=== PATIENT | female | born 1985 | race Caucasian/White ===

== ENCOUNTER → 2023-01-07 09:40 | Outpatient (CLI) | payer BC, SELFPAY ==
--- NOTE | ~2023-01-07 | MR_ITS ---
EXAMINATION: MR pelvis wo con DATE: 01/07/2023 10:38 INDICATION: Posterior left hip pain TECHNIQUE: Magnetic resonance imaging (MRI) of the pelvis was performed without intravenous contrast. Sequences included axial T1-weighted FSE, axial T2-weighted FS FSE, coronal T1-weighted FSE, coronal T2-weighted FS FSE, sagittal T1-weighted FSE and sagittal T2-weighted FS FSE. COMPARISON: None. FINDINGS: Minimal lower lumbar levocurvature. Normal alignment is otherwise normal. There is red marrow reexpan chantelle in the pelvis and lumbar spine which remains T1 hyperintense to the adjacent skeletal muscle. No fracture, osteonecrosis or pathologic marrow replacing process. Bilateral hip joint spaces appear re latively preserved however there is subarticular cystic change at the anterosuperior left acetabulum deep to a focal chondral fissure seen on the sagittal T2-weighted images. Bilateral mild sacroiliac a nd lower lumbar facet osteoarthritis. Normal disc heights in the lower lumbar spine. 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 The bilateral iliopsoas, rectus femoris, gluteal and proximal hamstring tend ons are normal. Normal symmetric muscle bulk and signal in the lower abdomen, pelvis and proximal thi ghs. Bladder is normal. section scar along the anterior lower uterine segment of the retrove rted uterus. Bilateral ovarian follicles with 2.5 cm dominant left ovarian follicle. Trace amount of likely physiologic free fluid in the cul-de-sac. No pathologically enlarged pelvic or inguinal lympha denopathy. IMPRESSION: 1. Mild left hip osteoarthritis with relatively preserved joint space. Degenerative subarticular cyst ic change deep chondral fissure at the anterosuperior left acetabulum. Reviewed, dictated and finalized at location B. IMPRESSION: 1. Mild left hip osteoarthritis with relatively preserved joint space. Degenera tive subarticular cystic change deep chondral fissure at the anterosuperior lef t acetabulum.
== END ==
PROVIDERS: PCP Physician Assistant; Visit Provider Physician Assistant
DX: M16.12 Unilateral primary osteoarthritis, left hip (principal); R93.89 Abnormal findings on diagnostic imaging of other specified body structures
CPT/HCPCS: 72195